=== PATIENT | female | born 1965 | race Caucasian/White ===

== ENCOUNTER 2023-05-02 14:39 | Emergency (ER) | payer OTHER, SELFPAY ==
[2023-05-02 14:43] VITALS: BP 113/72
[2023-05-02 14:48] VITALS: BMI 29.1
--- NOTE | 2023-05-02 15:16 | ED.GENMED ---
History of Present Illness
General
Chief Complaint: Alcohol Problem
Source: other (nurse discharge planner, Brenda powder worker)
Exam Limitations: none
Time Seen by Provider: 05/02/23 15:04
Travel History
Have you had any contact with someone who has COVID-19?: No
Do you have any symptoms of coronavirus? Fever > 100 degrees, chills, cough, shortness of breath, sore throat, loss of taste or smell, muscle aches, or headache?: No
History of Present Illness
History of Present Illness:
This patient is a 57-year-old female with a history of alcohol use disorder, reportedly has been sober but then 'relapsed' as per powder worker approximately 1 week ago. When police arrived, patient was obviously intoxicated, with emesis and urine
on her and appearing very disheveled. 302 was filed by police based on concerns about a inability to care for herself. Here in the ER, patient is in room C1, under the observation of our staff one-to-one, resting, asking to go home. She denies SI
or HI. She admits to regular heavy drinking most recently just prior to presentation here. She denies any physical complaints. She states that she ate breakfast this morning. She denies recent trauma or falls. I note a scab at the right
forehead which she states has been there for some time due to her recurrently scratching that area. She denies headache.
Past History
Past History
ED Past Medical History: Psychiatric (depression, Bipolar, ) and Other (alcohol abuse disorder)
ED Past Surgical History: (X 1)
Patient has exhibited threatening behavior?: No
Social History
Tobacco: Smoker
Alcohol: Chronic alcoholic (Beer, Wine 4-5 bottles daily Red wine, vodka)
Drug: None
Personal:
Living: with family
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
Family History
Family History: Adopted; Negative Diabetes, Hypertension or CAD
Phy Exam
Physical Exam
Physical Exam:
GENERAL: Awake, appears intoxicated, in no apparent distress
EYE: pupils equal and reactive
NECK: Supple, no significant adenopathy.
ENT: o/p clr, mm dry. There is a scab noted at the right forehead area which patient states has been there for some time because she continues to scratch at it. In prior records this is noted.
CARDIAC: Regular rate and rhythm .
LUNGS: Clear breath sounds bilaterally, no acute respiratory distress, no wheezes/rales/rhonchi
ABDOMEN: Soft, without focal tenderness, no r/g, no cvat
NEUROLOGICAL: Awake and oriented, speech slurred, moves all extremities equally, no facial droop, sensation intact to light touch
SKIN: Warm and dry, skin intact.
MUSCULOSKELETAL: No edema, well perfused.
PSYCH: Normal and appropriate interaction, denies SI or HI.
Scores
Withdrawal Assessment of Alcohol
Withdrawal Assessment Completed?: No
Course
Orders/Labs/Results
Orders:
Orders
05/02/23 15:22
0.9% Sodium Chloride 1000 ml [Nss] 1,000 ml IV BOLUS
05/02/23 15:37
Acetaminophen Urgent
Alcohol Urgent
CPK [Creatine Phosphokinase] Urgent
Complete Blood Count/No Diff Urgent
Comprehensive Metabolic Panel Urgent
Salicylate Urgent
Abnormal Lab Results
05/02/23
15:37
Plt Count 408 H 10^3/uL
(130-400)
Glucose 103 H mg/dl
(70-99)
Creatine Kinase 222 H U/L
(30-135)
Salicylates < 1.0 L mg/dl
(2.0-20.0)
Acetaminophen < 10 L ug/ml
(10-30)
05/02/23 15:37
05/02/23 15:37
Vital Signs
Initial and Last Documented VS:
Initial Vital Signs
Temp Pulse Resp BP Pulse Ox
98.3 F 100 18 113/72 94
05/02/23 14:43 05/02/23 14:43 05/02/23 14:43 05/02/23 14:43 05/02/23 14:43
Last Documented Vital Signs
Temp Pulse Resp BP Pulse Ox
97.8 F 111 20 125/91 97
05/03/23 07:02 05/03/23 07:02 05/03/23 07:02 05/03/23 07:02 05/03/23 07:02
*Critical Care Note
Total Time (30-74mins, 75-104mins- exclusive of procedures): Not Applicable
Update Note
Update Note:
Patient presents to the Emergency Department with ___alcohol intoxication
Number and Complexity of Problems Addressed at the Encounter
� Chronic conditions affecting care:
� Acute Exacerbation and/or Progression of Chronic Illness:
� Differential Diagnosis includes: But not limited to rhabdo, electrolyte disorder, AKA, dehydration, etc.
Amount and/or Complexity of Data to be Reviewed and Analyzed
� I performed an independent evaluation of and my interpretation is:
EKG:
CT:
Xrays:
Laboratory Studies: Relatively unremarkable, expected elevated alcohol level, slightly elevated CPK but not within the range to suggest rhabdo. IV fluids ordered
Other:
� Review of other/old records reveals:
� Clinical information was obtained by an independent historian: Case discussed with charge nurse and [place] powder worker who confirmed that a 302 has been filed by police and therefore this is expected to be upheld.
� Prescriptions/Medications Considered but not given:
� Further testing considered but not performed:
Risk of Complications and/or Morbidity or Mortality of Patient Management
� Social determinants of health affecting care:
� Discussion with other providers (PCP, Hospitalists, Consultants, etc):
� Escalation of care including admission/observation vs risk of discharge considered: 302 has been upheld by telepsych, I have completed paperwork, bed search in progress.
ED Attending Note
-
Portions of this chart may have been created with voice recognition software.� Occasional wrong word or��sound alike� substitutions may have occurred due to the inherent limitations of voice recognition software.
Discharge Plan
Departure
Patient Disposition: Psych Facility
Date of Disposition: 05/02/23
Time of Disposition: 16:28
Discharge Problem:
Alcohol use disorder
Referrals:
UNKNOWN - PT NOT,INTERVIEWE [Family Provider] -
Interventions
Interventions:
*Risk Screen - Suicide Last Done: 05/02/23 14:41
*General Assessment Last Done: 05/02/23 14:41
*Neglect/Abuse Screening Last Done: 05/02/23 14:41
*Nursing Disposition Last Done: 05/03/23 11:31
ED- Neurological Assessment Last Done: 05/02/23 14:50
ED-Psychological Assessment Last Done: 05/02/23 14:50
Discharge Date and Time
Discharge Date/Time: 05/03/23 11:32
[2023-05-02] MEDS: NSS 1000 IV (15:38)
[2023-05-02 15:44] LABS: Hematocrit 37.5 % (37.0-47.0); Hemoglobin 13.2 g/dL (12.0-16.0); Mean Corp Hgb Conc. 35.2 g/dL (33.0-37.0); Mean Corpuscular Hgb 30.4 pg (27.0-31.0); Mean Corpuscular Volume 86.4 fL (81.0-99.0); Mean Platelet Volume 8.7 fL (7.4-10.4); Platelet Count 408 10^3/uL (130-400); Red Blood Cell Count 4.34 10^6/uL (4.20-5.40); Red Cell Dist. Width 13.8 % (11.5-14.5); White Blood Cell Count 7.7 10^3/uL (4.8-10.8)
[2023-05-02 16:05] LABS: ALT (SGPT) 28 U/L (0-35); AST (SGOT) 33 U/L (14-36); Acetaminophen < 10 ug/ml (10-30); Alcohol 216 mg/dl; Alkaline Phosphatase 81 U/L (38-126); Blood Urea Nitrogen 14 mg/dl (7-17); Calcium 8.8 mg/dl (8.4-10.2); Carbon Dioxide 29 mmol/L (22-30); Chloride 105 mmol/L (98-107); Creatine Phosphokinase 222 U/L (30-135); Estimated Creatinine Clearance 113 ml/min; Glucose 103 mg/dl (70-99); Potassium 4.5 mmol/L (3.5-5.1); Salicylate < 1.0 mg/dl (2.0-20.0); Sodium 138 mmol/L (135-145); Total Bilirubin 0.4 mg/dl (0.2-1.3); eGFR > 60.00
[2023-05-03 07:02] VITALS: BP 125/91
--- NOTE | 2023-05-03 10:43 | W.PN.UPDATE ---
Update Note
Progress Note Update
This 57 year old female was brought in to ER last night by police, after she drank excess amounts of alcohol. She admits she texted her boss saying 'I can't go one.' Her boss then notified authorities and pt was brought into the ER on a 302.
This morning her Mental status has cleared. She has no thoughts of harming herself or others. Tells me she regrets drinking so much wine.
She has a long history of alcohol abuse and had been sober until recently- was attending AA. Now has a referral to [facility].
I recommend removing the 302 as she no longer requires immediate psychiatric treatment.
== END 2023-05-03 11:32 ==
LOC: EMR 14:39
PROVIDERS: EMERGENCY PHYSICIAN Emergency Medicine
DX: F10.10 Alcohol abuse, uncomplicated (principal); F17.200 Nicotine dependence, unspecified, uncomplicated
CPT/HCPCS: 99285; 96360; 80053; 80143; 80179; 82077; 82550; 85027

== ENCOUNTER 2023-07-02 13:00 | Emergency (ER) | payer OTHER, SELFPAY ==
--- NOTE | 2023-07-02 13:20 | ED.GENMED ---
History of Present Illness
General
Chief Complaint: Crisis Evaluation
Source: patient
Exam Limitations: none
Time Seen by Provider: 07/02/23 13:04
History of Present Illness
History of Present Illness:
Patient presents to the emergency department with alcohol intoxication and possible suicidality. She has a history of longstanding alcohol use disorder. She has been seen multiple times for this in the emergency department. She states her most
recent sobriety was for 30 days until 3 days ago. She notes that she plans on checking into [facility] tomorrow. She called the police making suicidal statements and was brought to the emergency meant on a 302. She currently denies suicidality
Past History
Past History
ED Past Medical History: Psychiatric (depression, Bipolar, ) and Other (alcohol abuse disorder)
ED Past Surgical History: (X 1)
Patient has exhibited threatening behavior?: No
Social History
Tobacco: Smoker
Alcohol: Chronic alcoholic (Beer, Wine 4-5 bottles daily Red wine, vodka)
Drug: None
Personal:
Living: with family
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
Family History
Family History: Adopted; Negative Diabetes, Hypertension or CAD
Phy Exam
Physical Exam
Physical Exam:
GENERAL APPEARANCE: NAD, Disheveled, smells of ETOH
EYES lids/conjunctiva normal
EARS/NOSE/THROAT Mucous membranes moist
HEAD/NECK normocephalic atraumatic, neck is supple.
RESPIRATORY respiratory effort normal, speaks in full sentences, no accessory muscle use. Lungs clear to auscultation without rhonchi, wheezes, rales
CARDIAC Regular rate and rhythm, no edema.
ABDOMINAL Soft, ND/NT. No pulsatile masses on exam, rebound tenderness, Coto sign or pain over Mcburney's point.
MUSCLES/EXTREMITIES No abnormal range of motion, no swelling.
SKIN Warm, pink and dry. No rashes
NEUROLOGICAL Speech is slurred, CN2-12 intact, 5/5 strength in all extremities.
PSYCH denies HI/SI
Course
Orders/Labs/Results
Orders:
Orders
07/02/23 13:26
Crisis Consult Routine
Reason for Consult: suicidality, alcohol intoxication
07/02/23 13:55
Alcohol Urgent
Complete Blood Count/With Diff Urgent
Comprehensive Metabolic Panel Urgent
07/02/23 15:00
0.9% Sodium Chloride 1000 ml [Nss] 1,000 ml Mvi, Adult [Multivitamin] 10 ml Thiamine Injection 100 mg IV 250 mls/hr
Abnormal Lab Results
07/02/23
13:55
WBC 11.9 H 10^3/uL
(4.8-10.8)
Absolute Neuts (auto) 7.7 H 10^3/uL
(1.4-6.5)
Absolute Monos (auto) 0.7 H 10^3/uL
(0.1-0.6)
Creatinine 0.5 L mg/dL
(0.6-1.0)
Glucose 115 H mg/dl
(70-99)
07/02/23 13:55
07/02/23 13:55
Vital Signs
Initial and Last Documented VS:
Initial Vital Signs
Temp Pulse Resp BP Pulse Ox
98.1 F 120 16 102/63 92
07/02/23 13:22 07/02/23 13:22 07/02/23 13:22 07/02/23 13:22 07/02/23 13:22
Last Documented Vital Signs
Temp Pulse Resp BP Pulse Ox
98.1 F 120 16 102/63 92
07/02/23 13:22 07/02/23 13:22 07/02/23 13:22 07/02/23 13:22 07/02/23 13:22
*Critical Care Note
Total Time (30-74mins, 75-104mins- exclusive of procedures): Not Applicable
ED Attending Note
ED Attending Note
ED Attending Note:
Patient presents emergency department with intoxication and suicidality. She is currently on a 302 petition by police. Spoke to encyclopedia research worker who recommends blood alcohol level and psychiatric evaluation.
Patient clinically sober at this time. She was seen by the psychiatrist who cleared her for discharge. Patient ambulating with steady gait. Instructed to follow-up with Mauricio as she is scheduled for tomorrow.
-
Portions of this chart may have been created with voice recognition software.� Occasional wrong word or��sound alike� substitutions may have occurred due to the inherent limitations of voice recognition software.
Discharge Plan
Departure
Patient Disposition: Home (Routine Discharge)
Date of Disposition: 07/02/23
Time of Disposition: 15:35
Patient with high blood pressure during this ER visit?: No
Discharge Problem:
Alcohol use disorder
Instructions: Drug and Alcohol Abuse Information
Referrals:
UNKNOWN - PT NOT,INTERVIEWE [Family Provider] -
Activity Restrictions/Additional Instructions:
return to ER as needed for detox or worsening symptoms
Interventions
Interventions:
ED-Psychological Assessment Last Done: 07/02/23 14:16
Discharge Date and Time
Print Language: IRISH
[2023-07-02 13:22] VITALS: BP 102/63
[2023-07-02 14:12] LABS: % Basophils 0.5 % (0-2); % Eosinophils 0.6 % (0-6); % Immature Granulocytes 0.3 % (0-0.5); % Lymphocytes 28.4 % (20.5-51.1); % Monocytes 5.9 % (1.7-9.3); % Neutrophils 64.3 % (42.2-75.2); Absolute Basophils 0.1 10^3/uL (0-0.2); Absolute Eosinophils 0.1 10^3/uL (0-0.7); Absolute Lymphocytes 3.4 10^3/uL (1.2-3.4); Absolute Monocytes 0.7 10^3/uL (0.1-0.6); Absolute Neutrophils 7.7 10^3/uL (1.4-6.5); Hematocrit 39.1 % (37.0-47.0); Hemoglobin 13.7 g/dL (12.0-16.0); Mean Corpuscular Hgb 30.6 pg (27.0-31.0); Mean Corpuscular Volume 87.5 fL (81.0-99.0); Mean Platelet Volume 9.4 fL (7.4-10.4); Nucleated Red Blood Cells % 0 %; Platelet Count 372 10^3/uL (130-400); Red Blood Cell Count 4.47 10^6/uL (4.20-5.40); Red Cell Dist. Width 13.6 % (11.5-14.5); White Blood Cell Count 11.9 10^3/uL (4.8-10.8)
[2023-07-02 14:26] LABS: ALT (SGPT) 20 U/L (0-35); AST (SGOT) 32 U/L (14-36); Albumin 4.1 g/dl (3.5-5.0); Alkaline Phosphatase 82 U/L (38-126); Blood Urea Nitrogen 13 mg/dl (7-17); Calcium 9.1 mg/dl (8.4-10.2); Carbon Dioxide 22 mmol/L (22-30); Chloride 103 mmol/L (98-107); Glucose 115 mg/dl (70-99); Potassium 3.9 mmol/L (3.5-5.1); Sodium 139 mmol/L (135-145); Total Bilirubin 0.4 mg/dl (0.2-1.3); Total Protein 7.2 g/dl (6.3-8.2); eGFR > 60.00
[2023-07-02] MEDS: MULTIVITAMIN 1011 MG IV (14:43)
[2023-07-02] MEDS: MULTIVITAMIN 1011 ML IV (14:43)
--- NOTE | 2023-07-02 14:55 | CON.MD ---
Consultation - Medical
-
patient seen chart reviewed. case discussed w er physician. the patient is a 57 year old woman with a long hx of etohism. she has been to rehab on multiple occasions. in the last month she was dc from a 30 day stay at [facility] but relapsed quickly.
she has significant stress in her life. who has severe dementia recently taken out of the home as local agency had concerns for him and placed in a nh. she lost the home she shared with him bc of it and now resides in a hotel supplied by a
local agency. she was with him for 30 plus years and still wants to be a part of his life. she said of the allegations in the [facility] petition alleging she called police and reported being suicidal 'i do stupid things when i am drunk ' this happened
earlier this am. when i spoke with her which was about three hours later she did not seem intoxicated at the time . her bal is pending. other labs look okay so far. she has been depressed and was taking cymbalta she does not know the dosage . it
was prescribed at [facility]. she was to see ms gray at [facility] for followup but has actually arranged to go to rehab at [facility] again tomorrow and this time to seek [facility] after an acute stay there. she drinks three bottles of wine dailiy
(told er doc 3-5). she said she has never experienced a serious withdrawal. she denies sz, dt's, sweating, tremulousness etc in the course of withdrawal. she is denying that she would hurt herself. she wants to be a part of her 's life even
if it is to visit him in prison rather than her caring for him at home. she also has a son in his mid 30's that she does not want to hurt. sleep not great. appetite fair. she has not lost large amounts of weight. there is nothing to suggest
psychosis
past psych hx patient has been to rehab on many occasions in the past. see above she has also taken celexa. she has been seen at [facility] by ms gray.
medical hx generally healthy she reports no chronic medical illnesses.
fh adopted
substance abuse see above re etoh
social resides in hotel having become homeless see above. in nh due to dementia. one son
mse alert ox3 cooperative no unusual behaviors noted. patient did not appear intoxicated when i saw her speech and thought process normal no psychosis affect ok mood is neutral she denied that she would hurt self. this episode very much like that
when she was seen her by dr kerns see record. aver intelligence insight and judgment not great although the decision to go to rehab and pursue [facility] rehab is a good one
dx etoh use disorder severe hx of depression
plan i am not going to uphold the 302 patient will remain to get a 'banana bag' as recommended by er md but then will be allowed to return the hotel she is staying at. she will either go to [facility] in the am...they will arrange transport or see if
they can pick her up for admit tonight. she and i discussed [facility] as an option for [facility]. she will talk to [facility] staff re referring her to that facility. ativan prn withdrawal sx.
[2023-07-02 15:01] LABS: Alcohol 145 mg/dl
== END 2023-07-02 16:07 | disposition home or self-care (01) ==
LOC: EMR 13:00
PROVIDERS: EMERGENCY PHYSICIAN Emergency Medicine; OTHER PHYSICIAN Psychiatry & Neurology Psychiatry
DX: F10.129 Alcohol abuse with intoxication, unspecified (principal); F17.200 Nicotine dependence, unspecified, uncomplicated
CPT/HCPCS: 99284; 96365; 80053; 82077; 85025

== ENCOUNTER 2023-07-06 10:48 | Emergency (ER) | payer OTHER, SELFPAY ==
[2023-07-06 11:11] VITALS: BP 143/73
[2023-07-06 11:25] LABS: % Basophils 0.7 % (0-2); % Eosinophils 0.1 % (0-6); % Immature Granulocytes 0.2 % (0-0.5); % Lymphocytes 27.8 % (20.5-51.1); % Monocytes 8.2 % (1.7-9.3); Absolute Basophils 0.1 10^3/uL (0-0.2); Absolute Monocytes 0.9 10^3/uL (0.1-0.6); Absolute Neutrophils 6.7 10^3/uL (1.4-6.5); Hematocrit 41.7 % (37.0-47.0); Hemoglobin 14.8 g/dL (12.0-16.0); Mean Corp Hgb Conc. 35.5 g/dL (33.0-37.0); Mean Corpuscular Hgb 30.1 pg (27.0-31.0); Mean Corpuscular Volume 84.9 fL (81.0-99.0); Mean Platelet Volume 8.8 fL (7.4-10.4); Nucleated Red Blood Cells % 0 %; Platelet Count 407 10^3/uL (130-400); Red Blood Cell Count 4.91 10^6/uL (4.20-5.40); Red Cell Dist. Width 13.5 % (11.5-14.5); White Blood Cell Count 10.6 10^3/uL (4.8-10.8)
[2023-07-06 12:34] LABS: Blood Urea Nitrogen 18 mg/dl (7-17); Calcium 9.8 mg/dl (8.4-10.2); Carbon Dioxide 24 mmol/L (22-30); Chloride 96 mmol/L (98-107); Glucose 124 mg/dl (70-99); Potassium 4.2 mmol/L (3.5-5.1); Sodium 133 mmol/L (135-145); eGFR > 60.00
[2023-07-06 12:50] VITALS: BP 148/81
[2023-07-06 12:59] LABS: Alcohol None Detected
[2023-07-06 13:15] LABS: Amphetamines Negative (Negative); Barbiturates Negative (Negative); Benzodiazepines Negative (Negative); Buprenorphine Negative (Negative); Cocaine Negative (Negative); Marijuana Negative (Negative); Methadone Negative (Negative); Methamphetamines Negative (Negative); Opiates Negative (Negative); Phencyclidine Negative (Negative); Tricyclic Antidepressants Negative (Negative)
[2023-07-06] MEDS: ATIVAN 2 MG PO (13:28)
[2023-07-06 14:00] VITALS: BP 127/80
--- NOTE | 2023-07-06 14:45 | CS.PSYCHR ---
Consult Summary - Psychiatry
-
Pt is 57 yo female referred from alcohol rehab facility, reportedly having suicidal ideation. Pt seen last week on the Psychiatry consult service at by Dr Dawn 07/02/23. Last month she was discharged from [facility]hab, but relapsed
quickly. Pt has significant stressors- has dementia and was recently placed in a long-term. Pt lost the home they had together and has been staying in a hotel supplied by a local agency. Pt states she was in a recovery house, but
kicked out when she relapsed on alcohol. Pt reportedly drinks three bottles of wine per day. She denies hx of severe withdrawal symptoms. Pt states her mood is good, denies any depression. She denies any suicidal ideation. Pt states she is
motivated to return to alcohol rehab.
Psych Hx: past inpatient treatment for depression, admissions at [facility] and [facility]. Outpatient med mgt at [facility], on Celexa in the past
Substance Use Hx: alcohol use for 30 years per pt. Multiple past alcohol rehabs.
SH: lived with until he was recently placed in long-term due to dementia. 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
she lost the job due to alcohol use
MSE: alert, oriented, calm, cooperative. Good eye contact. Mood good, affect stable/appropriate. No signs of psychosis, no agitation. Insight appears fair/intact
Imp: Alcohol Use d/o, severe
hx of depression, stable. Denies any suicidal ideation
Rec: Pt appears psychiatrically stable to return to alcohol rehab
[2023-07-06 15:00] VITALS: BP 117/71
--- NOTE | 2023-07-06 15:13 | ED.GENMED ---
History of Present Illness
General
Chief Complaint: Alcohol Problem
Time Seen by Provider: 07/06/23 12:55
Travel History
Have you had any contact with someone who has COVID-19?: No
Do you have any symptoms of coronavirus? Fever > 100 degrees, chills, cough, shortness of breath, sore throat, loss of taste or smell, muscle aches, or headache?: No
History of Present Illness
History of Present Illness:
57-year-old female with a long history of alcohol abuse presents to the emergency department requesting medical clearance for inpatient alcohol placement. She states that she has a bed waiting for her at [facility] however they requested her to come
to the ER for medical clearance. She apparently indicated to EMS that she was suicidal. Has a long history of suicidal ideation while intoxicated that resolves when she is sober. On my evaluation the patient denies any suicidal or homicidal
ideation. She states her last drink was at 4 AM today. Reports mild tremulousness but denies hallucinations, tactile skin disturbances, sweating, chest pain, or dyspnea.
Past History
Past History
ED Past Medical History: Psychiatric (depression, Bipolar, ) and Other (alcohol abuse disorder)
ED Past Surgical History: (X 1)
Patient has exhibited threatening behavior?: No
Social History
Tobacco: Smoker
Alcohol: Chronic alcoholic (Beer, Wine 4-5 bottles daily Red wine, vodka)
Drug: None
Personal:
Living: with family
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
Family History
Family History: Adopted; Negative Diabetes, Hypertension or CAD
Review of Systems
Review of Systems
Allergies reviewed?: Yes
All Other Systems: ROS reviewed and negative except as documented in HPI and ROS
Phy Exam
Physical Exam
Physical Exam:
GEN: Well appearing, NAD, WDWN
HEENT: Oral mucosa moist, no scleral icterus
Cardiac: Tachycardic, regular
Lung: No respiratory distress, no tachypnea
MSK: No gross deformity or injuries
Skin: Good color, no pallor or jaundice, no rashes. No diaphoresis
Neuro: AO x3, moves all extremities freely. Mild extremity tremor at rest
Psych: Calm, cooperative
Scores
Withdrawal Assessment of Alcohol
Withdrawal Assessment Completed?: Yes
Nausea and Vomiting: No nausea and no vomiting
Tactile Disturbances: None
Tremor: Moderate, with patient's arms extended
Auditory Disturbances: Not present
Paroxysmal Sweats: No sweat visible
Visual Disturbances: Not present
Anxiety: Mild anxiety
Headache, Fullness in Head: Not present
Agitation: Normal activity
Orientation and clouding of sensorium: Oriented and can do serial additions
Total CIWA Score: 5
Alcohol Withdrawal Medication Recommendation: Equal to MSAS Score 0-4. Monitor & re-assess q2hrs, NO MEDICATION NEEDED
Course
Orders/Labs/Results
Orders:
Orders
07/06/23 11:10
1:1 Observation - Suicide/ Violent Behavior As Directed
07/06/23 11:16
Alcohol Urgent
Basic Metabolic Panel Urgent
Complete Blood Count/With Diff Urgent
07/06/23 12:48
Urine Drug Abuse Screen Urgent
Date Specimen was Collected: 07/06/23
Time Specimen was Collected: 11:10
07/06/23 13:06
Crisis Consult Urgent
Reason for Consult: SI
07/06/23 13:[address] Non Medication Order As Directed
Physician Order: CANCEL 1:1, pt is not suicidal. Contracts for safety, she is not intoxicated
Above order entered?: Yes
07/06/23 13:24
Lorazepam [Ativan] 2 mg PO NOW STA
07/06/23 13:48
Consult Psychiatry [PSYCHIATRY CONSULT] Urgent
Consulting Provider: Curry Weaver
Was physician already notified: Yes
Abnormal Lab Results
07/06/23
11:16
Plt Count 407 H 10^3/uL
(130-400)
Absolute Neuts (auto) 6.7 H 10^3/uL
(1.4-6.5)
Absolute Monos (auto) 0.9 H 10^3/uL
(0.1-0.6)
Sodium 133 L mmol/L
(135-145)
Chloride 96 L mmol/L
(98-107)
BUN 18 H mg/dl
(7-17)
Glucose 124 H mg/dl
(70-99)
07/06/23 11:16
07/06/23 11:16
Vital Signs
Initial and Last Documented VS:
Initial Vital Signs
Temp Pulse Resp BP Pulse Ox
98.9 F 130 16 143/73 99
07/06/23 11:11 07/06/23 11:11 07/06/23 11:11 07/06/23 11:11 07/06/23 11:11
Last Documented Vital Signs
Temp Pulse Resp BP Pulse Ox
98.9 F 130 16 143/73 99
07/06/23 11:11 07/06/23 11:11 07/06/23 11:11 07/06/23 11:11 07/06/23 11:11
MDM/Problems Addressed
MDM/Problems Addressed:
Mauricio requesting formal psychiatric consultation for medical clearance before excepting this patient. She is exhibiting mild withdrawal symptoms with an alcohol level of 0 on my evaluation is given oral lorazepam to manage this. Psychiatric
evaluation/consultation completed in the emergency department and she is cleared from a medical perspective to proceed to [facility]. Will have transportation set up by Perfecto miller
*Critical Care Note
Total Time (30-74mins, 75-104mins- exclusive of procedures): Not Applicable
ED Attending Note
-
Portions of this chart may have been created with voice recognition software.� Occasional wrong word or��sound alike� substitutions may have occurred due to the inherent limitations of voice recognition software.
Discharge Plan
Departure
Patient Disposition: Acute Rehab Facility
Date of Disposition: 07/06/23
Time of Disposition: 15:14
Discharge Problem:
Alcohol abuse, Alcohol withdrawal
Activity Restrictions/Additional Instructions:
Catie has been cleared medically by the emergency department and psychiatrically with a formal psychiatric consultation
Interventions
Interventions:
*Risk Screen - Suicide Last Done: 07/06/23 11:04
*General Assessment Last Done: 07/06/23 11:04
*Neglect/Abuse Screening Last Done: 07/06/23 11:04
*ED COVID-19 Vaccine History Last Done: 07/06/23 12:44
ED- Neurological Assessment Last Done: 07/06/23 13:04
ED-Psychological Assessment Last Done: 07/06/23 13:04
Discharge Date and Time
Print Language: MONGOLIAN
== END 2023-07-06 16:31 ==
LOC: EMR 10:48
PROVIDERS: Student in an Organized Health Care Education/Training Program; CONSULT PHYSICIAN Psychiatry & Neurology Psychiatry; EMERGENCY PHYSICIAN Emergency Medicine; FAMILY PHYSICIAN Internal Medicine
DX: F10.239 Alcohol dependence with withdrawal, unspecified (principal); R45.851 Suicidal ideations; Z02.79 Encounter for issue of other medical certificate; F31.9 Bipolar disorder, unspecified; F32.A Depression, unspecified; F17.200 Nicotine dependence, unspecified, uncomplicated
CPT/HCPCS: 99284; 80048; 80306; 82077; 85025